=== PATIENT | female | born 1995 | race Hispanic/Latino ===

== ENCOUNTER 2017-10-17 20:27 | Emergency (ER) | payer SELFPAY ==
[2017-10-17 21:24] LABS: APPEARANCE,URINE Clear (CLEAR); BILIRUBIN,URINE Negative (NEGATIVE); COLOR,URINE Yellow (YELLOW); GLUCOSE, URINE (UA) Negative (NEGATIVE); KETONES,URINE Negative (NEGATIVE); LEUKOCYTE ESTERASE ,URINE Negative (NEGATIVE); NITRATE,URINE Negative (NEGATIVE); OCCULT BLOOD,URINE Negative (NEGATIVE); PH,URINE 6.5 (5.0-8.0); PROTEIN,URINE Negative (NEGATIVE)
[2017-10-17 21:26] LABS: BASOPHILS % (AUTO) 0.8 % (0.0-5.0); EOSINOPHILS % (AUTO) 2.8 % (0.0-8.0); HEMATOCRIT 43.6 % (36-48); LYMPHOCYTES % (AUTO) 31.4 % (21.0-51.0); MEAN CORPUSCULAR HGB CONC 34.1 g/dL (32.0-36.0); MEAN CORPUSCULAR VOLUME 81.9 fL (79-99); MONOCYTES % (AUTO) 7.4 % (3.0-13.0); NEUTROPHILS % (AUTO) 57.6 % (40.0-77.0); PLATELET COUNT (AUTO) 319 K/uL (130-400); RED BLOOD CELL COUNT(AUTO) 5.33 MIL/uL (4.00-5.50); RED CELL DISTRIBUTION WIDTH 14.2 % (11.0-15.5); WHITE BLOOD COUNT (AUTO) 9.8 K/uL (4.8-10.8)
[2017-10-17 21:33] LABS: HCG,QUAL RESULT NEGATIVE (NEGATIVE)
[2017-10-17 21:45] LABS: CREATININE 0.7 mg/dL (0.5-1.5); POTASSIUM 3.7 mmol/L (3.5-5.1)
[2017-10-17 21:50] LABS: ALBUMIN 3.6 g/dL (3.5-5.0); BILIRUBIN,TOTAL 0.4 mg/dL (0.2-1.0); TOTAL PROTEIN, SERUM 7.9 g/dL (6.0-8.3)
[2017-10-19 20:10] LABS: CHLAMYDIA DNA N.A.AMPLIFY Positive (Negative)
== END 2017-10-17 23:25 | disposition home or self-care (01) ==
LOC: EDH 20:27
DX: R10.30 Lower abdominal pain, unspecified (principal); R10.2 Pelvic and perineal pain; R11.0 Nausea
CPT/HCPCS: 36415; 80053; 81003; 81025; 85025; 87210; 87486; 87797

== ENCOUNTER 2019-03-22 15:34 | Emergency (ER) | payer OTHER ==
[2019-03-22] MEDS ORDERED: AMOXICILLIN/POTASSIUM CLAV 875-125 TABLET PO ONE (16:01)
[2019-03-22] MEDS ORDERED: ACETAMINOPHEN EXTRA STRENGTH 500 MG TABLET ONE (16:01)
== END 2019-03-22 16:10 | disposition home or self-care (01) ==
LOC: EDH 15:34
DX: H60.391 Other infective otitis externa, right ear (principal); H65.191 Other acute nonsuppurative otitis media, right ear; R50.9 Fever, unspecified

== ENCOUNTER 2019-05-02 16:58 | Emergency (ER) | payer OTHER, SELFPAY ==
[2019-05-02] MEDS ORDERED: FUROSEMIDE 10 MG/ML 4ML VIAL ONE (17:26)
[2019-05-02 18:01] LABS: BASOPHILS % (AUTO) 1.1 % (0.0-5.0); EOSINOPHILS % (AUTO) 2.4 % (0.0-8.0); HEMATOCRIT 47.8 % (36-48); LYMPHOCYTES % (AUTO) 27.2 % (21.0-51.0); MEAN CORPUSCULAR HEMOGLOBIN 27.5 pg (27.0-33.0); MEAN CORPUSCULAR HGB CONC 33.5 g/dL (32.0-36.0); MEAN CORPUSCULAR VOLUME 82.1 fL (80-100); MONOCYTES % (AUTO) 4.6 % (3.0-13.0); NEUTROPHILS % (AUTO) 64.7 % (40.0-77.0); NUCLEATED RED BLOOD CELLS 0.2 % (0.0-0.19); PLATELET COUNT (AUTO) 347 K/uL (130-400); RED BLOOD CELL COUNT(AUTO) 5.82 MIL/uL (4.00-5.50); RED CELL DISTRIBUTION WIDTH 14.2 % (11.0-15.5); WHITE BLOOD COUNT (AUTO) 11.7 K/uL (4.8-10.8)
[2019-05-02 18:11] LABS: CREATININE 0.9 mg/dL (0.5-1.5); POTASSIUM 3.9 mmol/L (3.5-5.1)
[2019-05-02 18:32] LABS: B-TYPE NATRIURETIC PEPTIDE 6 pg/mL (0-100)
[2019-05-02 18:45] LABS: APPEARANCE,URINE Clear (CLEAR); BILIRUBIN,URINE Negative (NEGATIVE); COLOR,URINE Yellow (YELLOW); GLUCOSE, URINE (UA) Negative (NEGATIVE); KETONES,URINE Negative (NEGATIVE); LEUKOCYTE ESTERASE ,URINE Negative (NEGATIVE); NITRATE,URINE Negative (NEGATIVE); OCCULT BLOOD,URINE Negative (NEGATIVE); PROTEIN,URINE Negative (NEGATIVE); UROBILINOGEN,URINE 0.2 mg/dL (0.2-1.0)
== END 2019-05-02 19:37 | disposition home or self-care (01) ==
LOC: EDH 16:58
DX: R60.0 Localized edema (principal); M54.9 Dorsalgia, unspecified
CPT/HCPCS: 36415; 80048; 81003; 83880; 84702; 85025; 93005; 96374; 99285; J1940

== ENCOUNTER 2022-12-09 16:18 | Emergency (ER) | payer OTHER ==
[~2022-12-09] VITALS: Ht 160 cm; Wt 139.7 kg
[2022-12-09 17:46] VITALS: BP 144/86
== END 2022-12-09 21:16 | disposition left against medical advice (07) ==
LOC: EDH 16:18
DX: R11.10 Vomiting, unspecified (principal); J02.9 Acute pharyngitis, unspecified; Z20.822 Contact with and (suspected) exposure to COVID-19; Z53.21 Procedure and treatment not carried out due to patient leaving prior to being seen by health care provider
CPT/HCPCS: 99281; 87635; 87880; 87804 ×2; C9803

== ENCOUNTER 2023-04-14 21:26 | Emergency (ER) | payer OTHER ==
[~2023-04-14] VITALS: Ht 160 cm; Wt 144.7 kg
[2023-04-14 22:02] VITALS: BP 145/90
[2023-04-14] MEDS ORDERED: GABA-529 PO (22:23)
== END 2023-04-14 22:44 | disposition home or self-care (01) ==
LOC: EDH 21:26
DX: G62.9 Polyneuropathy, unspecified (principal); M79.604 Pain in right leg; Z98.890 Other specified postprocedural states

== ENCOUNTER 2024-07-19 05:43 | Emergency (ER) | payer BC ==
[~2024-07-19] VITALS: Ht 160 cm; Wt 145.1 kg
[~2024-07-19 05:43] MED LIST: GABA-529 PO
[2024-07-19] MEDS ORDERED: AMOX1TAB16 PO (06:49)
[2024-07-19] MEDS: ketOROlac 15MG/ML VIAL (15MG/ML) IM ONE (06:51)
[2024-07-19] MEDS: predniSONE 20 MG TABLET PO ONE (06:54)
[2024-07-19] MEDS: cefTRIAXone 1G VIAL IVPB ONE (06:54)
[2024-07-19 07:24] VITALS: BP 139/89; PULSE 81; RESP 18; TEMP 98.8; O2SAT 99
== END 2024-07-19 07:40 | disposition home or self-care (01) ==
LOC: EDH 05:43
DX: H92.01 Otalgia, right ear (principal); H66.91 Otitis media, unspecified, right ear; Z79.899 Other long term (current) drug therapy
CPT/HCPCS: 99284; 96365; 96372; J0696; J1885